=== PATIENT | female | born 1980 | race Caucasian/White ===

== ENCOUNTER 2016-11-07 14:25 | Emergency (ER) | payer MEDICARE, OTHER ==
[~2016-11-07] VITALS: Ht 170.2 cm; Wt 70.5 kg
[~2016-11-07 14:25] MED LIST: TRIA0.1L EX; VARE1 PO
[2016-11-07 14:31] VITALS: BP 105/76; PULSE 77; RESP 16; TEMP 98.5; O2SAT 100
--- NOTE | 2016-11-07 15:05 | PD ---
HPI Chief Complaint: Related Problem Time Seen by Provider: 14:38 Travel History International Travel<30 days: No Contact w/Intl Traveler<30days: No Traveled to known affect area: No History of Present Illness HPI So 36 year-old woman presents to the emergency department because she missed her menstrual cycle for the past 2 months. She had a little bit of spotting on the 13th and 14th of this month. She had a little lower abdominal discomfort. She's been urinating more than normal. She thinks she may be U urine test at home of been negative. She has a history of 3 previous pregnancies, with 2 healthy deliveries and one miscarriage. She otherwise has been feeling one healthy. Sex active one male partner. No other symptoms. History Past Medical History Narrative Medical Hearing impaired Social History Alcohol Use: Yes (OCC) Tobacco Use: Yes (1/2 ppd) Allergies-Medications (Allergen,Severity, Reaction): Coded Allergies: Latex (Verified Allergy, Severe, 11/07/16) Reported Meds & Prescriptions Reported Meds & Active Scripts Active No Active Prescriptions or Reported Medications Review of Systems Except as stated in HPI: all other systems reviewed are Neg Physical Exam Narrative GENERAL: Well-appearing 36 year-old woman, no acute distress. SKIN: Warm and dry. CARDIOVASCULAR: Regular rate and rhythm. No murmur appreciated. RESPIRATORY: No accessory muscle use. Clear to auscultation. Breath sounds equal bilaterally. GASTROINTESTINAL: Abdomen soft, non-tender, nondistended. Hepatic and splenic margins not palpable. MUSCULOSKELETAL: No obvious deformities. Data Data Last Documented VS Vital Signs Date Time Temp Pulse Resp B/P Pulse Ox O2 Delivery O2 Flow Rate FiO2 11/07/16 14:31 98.5 77 16 105/76 100 Orders Urinalysis - C+S If Indicated (11/07/16 14:49) Ed Urine Pregnancytest Poc (11/07/16 14:49) Labs Laboratory Tests Test 11/07/16 14:55 Urine Color YELLOW Urine Turbidity CLEAR Urine pH 6.0 Urine Specific [place] 1.009 Urine Protein NEG mg/dL Urine Glucose (UA) NEG mg/dL Urine Ketones NEG mg/dL Urine Occult Blood NEG Urine Nitrite NEG Urine Bilirubin NEG Urine Leukocyte Esterase NEG Urine RBC 0-3 /hpf Urine WBC 0-2 /hpf Urine Squamous Epithelial 0-5 /hpf Cells Microscopic Urinalysis Comment CATH-CULT NOT IND MDM Medical Decision Making Medical Screen Exam Complete: Yes Emergency Medical Condition: Yes Interpretation(s) UA negative Urine negative Differential Diagnosis Amenorrhea, UTI, , other Narrative Course Medical decision making This a 36 year-old woman is worried she may be she missed her menstrual cycle. We'll check urine test. She is also urinating more than normal. We'll check UA. If negative, recommend outpatient follow-up with gynecology. Diagnosis Primary Impression: Abnormal menstrual cycle Additional Instructions: Follow-up with her psychological aide the first available appointment for further evaluation. Return to the emergency department for any worsening abdominal pain, or any other new or worsening symptoms. Scripts No Active Prescriptions or Reported Meds Disposition: 01 DISCHARGE HOME Condition: Stable Pepe Reyes MD Nov 07, 2016 15:05
[2016-11-07 15:10] LABS: BLOOD, URINE NEG (NEG); GLUCOSE,URINE NEG (NEG); KETONE, URINE NEG (NEG); NITRITE,URINE NEG (NEG)
[2016-11-07 15:13] LABS: URINE COLOR YELLOW (YELLW/STRAW)
[2016-11-07 15:15] LABS: COMMENT (UR) CATH-CULT NOT IND; CULTURE IF INDICATED CATH CULTURE NOT IND; RBC, URINE 0-3 /hpf (0-3); SQUAMOUS EPITHELIAL CELL URINE 0-5 /hpf (0-5); WBC, URINE 0-2 /hpf (0-5)
== END 2016-11-07 15:39 | disposition home or self-care (01) ==
LOC: PHED 14:25
DX: R35.0 Frequency of micturition (principal); N92.6 Irregular menstruation, unspecified; F17.210 Nicotine dependence, cigarettes, uncomplicated
CPT/HCPCS: 81001; 84703; 99284